=== PATIENT | male | born 1955 | race Caucasian/White ===

== ENCOUNTER → 2017-12-03 09:16 | Outpatient (CLI) | payer OTHER, SELFPAY ==
--- NOTE | 2017-12-03 09:18 | DI.RAD.S_ITS ---
PROCEDURE: XR KNEE LT 3V INDICATIONS: KNEE PAIN TECHNIQUE: 3 views of the knee were acquired. COMPARISON: [facility], CR, XR KNEE RT 3V, 12/03/2017, 9:24. FINDINGS: Bones: No fractures or dislocations. No suspicious bony lesions. Mild tricompartment osteoarthritis is seen more prominent in the medial femoral tibial compartment. No significant patellar subluxation. Soft tissues: Trace suprapatellar joint effusion. No suspicious soft tissue calcifications. IMPRESSION: Mild tricompartment osteoarthritis. Trace joint effusion. Dictated by: Lee Roche M.D. on 12/03/2017 at 11:09 Approved by: Lee Roche M.D. on 12/03/2017 at 11:14
--- NOTE | 2017-12-03 09:18 | DI.RAD.S_ITS ---
PROCEDURE: XR KNEE RT 3V INDICATIONS: KNEE PAIN TECHNIQUE: 3 views of the knee were acquired. COMPARISON: [facility], , KNEE 3V RIGHT, 07/15/2013, 16:14. FINDINGS: Bones: No fractures or dislocations. No suspicious bony lesions. Mild tricompartmental osteoarthritis in the right knee is seen. No significant patellar subluxation. Soft tissues: No joint effusion. No suspicious soft tissue calcifications. IMPRESSION: Mild tricompartmental osteoarthritis in the right knee. Dictated by: Lee Roche M.D. on 12/03/2017 at 11:08 Approved by: Lee Roche M.D. on 12/03/2017 at 11:09
== END ==
PROVIDERS: Family Provider Family Medicine; PCP Family Medicine; Visit Provider Registered Nurse
DX: M17.0 Bilateral primary osteoarthritis of knee (principal); M25.561 Pain in right knee; M25.562 Pain in left knee
CPT/HCPCS: 73562

== ENCOUNTER → 2018-01-18 09:39 | Outpatient (CLI) | payer OTHER, SELFPAY ==
[2018-01-18 10:19] LABS: Add Manual Diff / Slide Review NO; Basophils Percent Auto 0.8 % (0-2); Hematocrit 43.4 % (41-53); Lymphocytes Percent Auto 26.6 % (25-40); Mean Corpuscular HGB Conc 34.5 % (30-36); Mean Corpuscular Hemoglobin 32.4 PG (26-34); Mean Corpuscular Volume 93.8 fL (80-100); Monocytes Percent Auto 8.4 % (3-14); Neutrophils Absolute Auto 2900 /uL (3000-5900); Neutrophils Percent Auto 60.2 % (50-75); Platelet Count 198 X10^3/uL (150-400); Red Blood Cell Count 4.63 X10^6/uL (4.5-5.9); White Blood Cell Count 4.8 X10^3/uL (4.5-11.0)
[2018-01-18 10:26] LABS: HEMOLYSIS < 15 (0-50)
[2018-01-18 10:32] LABS: Alanine Aminotransferase 26 IU/L (21-72); Albumin 4.2 g/dL (3.5-5.0); Albumin Globulin Ratio 1.4 (1.0-2.8); Alkaline Phosphatase 72 U/L (38-126); Aspartate Aminotransferase 25 IU/L (17-59); BUN Creatinine Ratio 26.3 (6-22); Bilirubin Total 0.6 mg/dL (0.2-1.3); Blood Urea Nitrogen 21 mg/dL (9-20); Calcium 8.9 mg/dL (8.4-10.2); Carbon Dioxide 25 mmol/L (22-32); Chloride 105 mmol/L (98-107); Cholesterol 207 mg/dL (140-199); Estimated Glomerular Filt Rate > 60.0 mL/min (>60); Globulin 2.9 g/dL (1.7-4.1); Glucose 98 mg/dL (80-110); HDL Cholesterol 62 mg/dL (40-60); LDL Cholesterol Calculated 128 mg/dL (<100); Potassium 4.1 mmol/L (3.4-5.1); Sodium 140 mmol/L (137-145); Total Protein 7.1 g/dL (6.3-8.2); Triglycerides 84 mg/dL (35-150)
[2018-01-18 10:44] LABS: Hemoglobin A1C% w Est Avg Glu 5.6 % (4.0-6.0)
[2018-01-18 11:12] LABS: Prostate Specific Antigen Scrn 1.49 ng/mL (0.1-4.0)
[2018-01-18 11:24] LABS: Vitamin D 25 Hydroxy (D3) 54.2 ng/mL (30.0-100.0)
[2018-01-18 12:49] LABS: Free T3, Triiodothyronine Free 3.32 pg/mL (2.77-5.27); Free T4, Direct Thyroxine 1.14 ng/dL (0.78-2.19)
[2018-01-18 13:00] LABS: Thyroid Stimulating Hormone 2.16 uIU/mL (0.47-4.68)
[2018-01-19 14:52] LABS: Thyroid Peroxidase Antibodies 18 IU/mL (< 9)
[2018-01-20 17:58] LABS: Homocysteine 12.2 umol/L (< 11.4)
[2018-01-21 08:29] LABS: Lipoprofile NMR SEE SEPARATE REPORTS
[2018-01-22 16:12] LABS: Insulin Level Total 4.2 uIU/mL (2.0-19.6)
[2018-01-25 19:32] LABS: Triiodothyronine T3 Reverse 21 ng/dL (8-25)
== END ==
PROVIDERS: Family Provider Family Medicine; PCP Family Medicine; Visit Provider Family Medicine
DX: I48.91 Unspecified atrial fibrillation (principal); Z00.00 Encounter for general adult medical examination without abnormal findings
CPT/HCPCS: 36415; 80053; 80061; 82306; 83036; 83090; 83525; 83704; 84439; 84443; 84481; 84482; 85025; 86376; G0103

== ENCOUNTER → 2018-05-24 08:32 | Outpatient (CLI) | payer OTHER, SELFPAY ==
--- NOTE | 2018-05-24 08:44 | DI.CT.S_ITS ---
PROCEDURE: CT ABDOMEN PELVIS W CON INDICATIONS: left lower quad pain x several months TECHNIQUE: After the administration of oral and intravenous contrast, 5 mm thick sections acquired from the diaphragms to the symphysis. 5 mm thick coronal and sagittal reformats were performed. For radiation dose reduction, the following was used: automated exposure control, adjustment of mA and/or kV according to patient size. COMPARISON: None. FINDINGS: Image quality: Excellent. ABDOMEN: Lung bases: Lung bases are clear. Heart size is normal. Solid organs: Small indeterminate hepatic hypodensities are most likely cysts. Liver is normal in size and enhancement. Gallbladder contains gallstones. Biliary system is non-dilated. Pancreas enhances normally. Spleen is normal in size and enhancement. No adrenal nodules. Kidneys are normal in size and enhancement, without hydronephrosis. Peritoneum and bowel: Stomach, small bowel, and colon loops are normal in caliber. There is concentric thickening of the third portion of duodenum. Appendix is normal. There are a few colonic diverticula. No free fluid or air. Nodes and vessels: No retroperitoneal or mesenteric adenopathy. Aorta and inferior vena cava are normal in caliber. Miscellaneous: No ventral hernias. There is left inguinal hernia repair. PELVIS: Genitourinary: Bladder wall thickness is normal. Prostate is enlarged. Miscellaneous: No inguinal hernias or adenopathy. Bones: No suspicious bony lesions. No vertebral body compression fractures. IMPRESSION: 1. Concentric thickening of the third portion of duodenum consistent with duodenitis. If clinically indicated, upper GI series or upper endoscopy may be helpful. 2. Cholelithiasis. 3. Small indeterminate hepatic hypodensities are most likely cysts. 4. Mild diverticulosis without acute diverticulitis. 5. Enlarged prostate. Dictated by: Jackie Arnold M.D. on 05/24/2018 at 14:25 Approved by: Jackie Arnold M.D. on 05/24/2018 at 18:30
[2018-05-24 08:55] LABS: Blood Urea Nitrogen 18 mg/dL (9-20); Estimated Glomerular Filt Rate > 60.0 mL/min (>60)
== END ==
PROVIDERS: PCP Family Medicine; Visit Provider Family Medicine
DX: Z01.812 Encounter for preprocedural laboratory examination (principal); R10.32 Left lower quadrant pain; K57.90 Diverticulosis of intestine, part unspecified, without perforation or abscess without bleeding; K80.20 Calculus of gallbladder without cholecystitis without obstruction; N40.0 Benign prostatic hyperplasia without lower urinary tract symptoms
CPT/HCPCS: 36415; 74177; 82565; 84520; Q9967

== ENCOUNTER → 2019-09-13 08:16 | Outpatient (CLI) | payer OTHER, SELFPAY ==
[2019-09-13 09:58] LABS: Add Manual Diff / Slide Review NO; Basophils Absolute Auto 0 /uL (0-100); Basophils Percent Auto 0.6 % (0-2); Eosinophils Absolute Auto 300 /uL (0-450); Eosinophils Percent Auto 6.1 % (2-4); Hematocrit 43.4 % (41-53); Hemoglobin 14.6 g/dL (13.5-17.5); Lymphocytes Absolute Auto 1300 /uL (1100-4500); Lymphocytes Percent Auto 24.6 % (25-40); Mean Corpuscular HGB Conc 33.7 % (30-36); Mean Corpuscular Hemoglobin 32.1 PG (26-34); Mean Corpuscular Volume 95.3 fL (80-100); Monocytes Absolute Auto 500 /uL (0-900); Monocytes Percent Auto 9.7 % (3-14); Neutrophils Absolute Auto 3000 /uL (1500-7000); Platelet Count 203 X10^3/uL (150-400); Red Blood Cell Count 4.56 X10^6/uL (4.5-5.9); Red Cell Distribution Width 12.7 % (11.6-14.8); White Blood Cell Count 5.2 X10^3/uL (4.5-11.0)
[2019-09-13 10:14] LABS: Hemoglobin A1C% w Est Avg Glu 5.8 % (4.0-6.0)
[2019-09-13 10:22] LABS: Alanine Aminotransferase 18 IU/L (<50); Albumin 4.2 g/dL (3.5-5.0); Albumin Globulin Ratio 1.6 (1.0-2.8); Alkaline Phosphatase 76 U/L (38-126); Aspartate Aminotransferase 27 IU/L (17-59); BUN Creatinine Ratio 24.5 (6-22); Bilirubin Total 0.5 mg/dL (0.2-1.3); Blood Urea Nitrogen 24 mg/dL (9-20); Calcium 9.4 mg/dL (8.4-10.2); Carbon Dioxide 28 mmol/L (22-32); Chloride 106 mmol/L (98-107); Cholesterol 233 mg/dL (140-199); Estimated Glomerular Filt Rate > 60.0 mL/min (>60); Globulin 2.7 g/dL (1.7-4.1); Glucose 95 mg/dL (80-110); HDL Cholesterol 51 mg/dL (40-60); HEMOLYSIS < 15 (0-50); LDL Cholesterol Calculated 164 mg/dL (<100); Potassium 4.5 mmol/L (3.4-5.1); Sodium 140 mmol/L (137-145); Total Protein 6.9 g/dL (6.3-8.2); Triglycerides 90 mg/dL (35-150)
[2019-09-13 10:25] LABS: High Sensitivity CRP - Cardiac 1.3 mg/L (1.0-3.0)
[2019-09-13 10:37] LABS: Vitamin D 25 Hydroxy (D3) 55.4 ng/mL (30.0-100.0)
[2019-09-13 10:50] LABS: Thyroid Stimulating Hormone 1.81 uIU/mL (0.47-4.68)
[2019-09-13 10:52] LABS: Prostate Specific Antigen Scrn 1.17 ng/mL (0.1-4.0)
[2019-09-13 11:00] LABS: Appearance Urine UA CLEAR; Bilirubin Urine UA NEGATIVE (NEGATIVE); Color Urine UA YELLOW; Glucose Urine UA NEGATIVE (Negative); Ketones Urine UA NEGATIVE (NEGATIVE); Leukocyte Esterase Urine UA NEGATIVE (NEGATIVE); Nitrite Urine UA NEGATIVE (Negative); Occult Blood Urine UA NEGATIVE (Negative); Protein Urine UA NEGATIVE (Negative); Urobilinogen Urine UA 0.2 E.U./dL (0.2); pH Urine UA 5.5 (4.5-8.0)
[2019-09-13 11:27] LABS: Folate 8.4 ng/mL (2.76-20.0)
[2019-09-16 14:27] LABS: Vitamin B12 310 pg/mL (239-931)
[2019-09-19 07:36] LABS: Vitamin C 1.5 mg/dL (0.4-2.0)
== END ==
PROVIDERS: PCP Family Medicine; Referring Provider Family Medicine; Visit Provider Family Medicine
DX: E78.5 Hyperlipidemia, unspecified (principal); I48.91 Unspecified atrial fibrillation; K05.6 Periodontal disease, unspecified; Z12.5 Encounter for screening for malignant neoplasm of prostate; R53.83 Other fatigue
CPT/HCPCS: 36415; 80053; 80061; 81003; 82180; 82306; 82607; 82746; 83036; 84443; 85025; 86140; G0103

== ENCOUNTER → 2019-09-24 12:58 | Outpatient (CLI) | payer OTHER, SELFPAY ==
--- NOTE | 2019-09-24 12:59 | DI.CT.S_ITS ---
PROCEDURE: CT ABDOMEN PELVIS W CON INDICATIONS: Abdominal pain TECHNIQUE: After the administration of oral and intravenous contrast, 5 mm thick sections acquired from the diaphragms to the symphysis. 5 mm thick coronal and sagittal reformats were performed. For radiation dose reduction, the following was used: automated exposure control, adjustment of mA and/or kV according to patient size. COMPARISON: [facility], CT, CT ABDOMEN PELVIS W CON, 05/24/2018, 9:38. FINDINGS: Image quality: Excellent. ABDOMEN: Lung bases: Lung bases are clear. Heart size is normal. Solid organs: Liver is normal in size and enhancement. Gallbladder contains multiple calcified stones. Mild prominence of the wall of the gallbladder. No fluid around the gallbladder. No dilated ducts.. Pancreas enhances normally. Spleen is normal in size and enhancement. No adrenal nodules. Kidneys are normal in size and enhancement, without hydronephrosis. Peritoneum and bowel: Stomach, small bowel, and colon loops are normal in caliber and wall thickness. No free fluid or air. Nodes and vessels: No retroperitoneal or mesenteric adenopathy. Aorta and inferior vena cava are normal in caliber. Miscellaneous: No ventral hernias. PELVIS: Genitourinary: Mild bladder wall thickening. Mild enlargement of the prostate. Miscellaneous: Evidence of remote left inguinal hernia repair. Question recurrent hernia containing fat. No inguinal adenopathy. Bones: No suspicious bony lesions. No vertebral body compression fractures. IMPRESSION: 1. Remote left inguinal hernia repair with question of recurrence inguinal hernia containing fat 2. No evidence of acute abdominal process. 3. Cholelithiasis. Comment: Consider left inguinal ultrasound with and without Valsalva if pain symptomatology corresponds to this location. Dictated by: Dawson Dixon M.D. on 09/24/2019 at 14:31 Approved by: Dawson Dixon M.D. on 09/24/2019 at 14:54
== END ==
PROVIDERS: PCP Family Medicine; Referring Provider Family Medicine; Visit Provider Family Medicine
DX: R10.9 Unspecified abdominal pain (principal); N40.0 Benign prostatic hyperplasia without lower urinary tract symptoms; K80.20 Calculus of gallbladder without cholecystitis without obstruction
CPT/HCPCS: 74177; Q9967

== ENCOUNTER → 2019-11-09 10:01 | Outpatient (CLI) | payer OTHER, SELFPAY ==
[2019-11-11 12:06] LABS: COVID19 Sendout Not Detected (Not Detect)
== END ==
PROVIDERS: PCP Family Medicine; Visit Provider Physician Assistant
DX: Z11.59 Encounter for screening for other viral diseases (principal)
CPT/HCPCS: 87635